=== PATIENT | female | born 1955 | race Caucasian/White ===

== ENCOUNTER 2019-07-19 00:25 | Emergency (ER) | payer MEDICARE, OTHER ==
[~2019-07-19] VITALS: Ht 162.6 cm; Wt 100.0 kg
[~2019-07-19 00:25] MED LIST: CETI-454 PO; GLIM4 PO; METF-446 PO; MULT-12 PO; NAPR375T6 PO; SIMV-261 PO
[2019-07-19] MEDS: DiphenhydrAMINE HCL 25 MG CAPSULE PO ONE (01:16)
[2019-07-19] MEDS: ACETAMINOPHEN 325 MG TABLET PO ONE (05:44)
[2019-07-19 13:01] VITALS: BP 145/82
== END 2019-07-19 13:03 | disposition home or self-care (01) ==
LOC: EMS 00:25
DX: T59.891A Toxic effect of other specified gases, fumes and vapors, accidental (unintentional), initial encounter (principal); E11.9 Type 2 diabetes mellitus without complications; E78.00 Pure hypercholesterolemia, unspecified; J45.909 Unspecified asthma, uncomplicated; Z91.010 Allergy to peanuts; Z79.899 Other long term (current) drug therapy; Y92.89 Other specified places as the place of occurrence of the external cause

== ENCOUNTER 2020-07-07 07:54 | Emergency (ER) | payer MEDICARE, OTHER ==
[~2020-07-07] VITALS: Ht 162.6 cm; Wt 95.5 kg
[2020-07-07 08:31] LABS: GLUCOSE,POINT OF CARE 365 MG/DL (70-110)
[2020-07-07 08:45] LABS: BASOPHILS % (AUTO) 0.7 % (0.0-2.0); EOSINOPHILS % (AUTO) 1.6 % (1.0-6.0); HEMATOCRIT 37.2 % (36-46); HEMOGLOBIN 12.3 g/dL (12.0-16.0); LYMPHOCYTES # (AUTO) 1.1 K/uL (1.0-4.8); LYMPHOCYTES % (AUTO) 22.4 % (22.0-44.0); MEAN CORPUSCULAR HEMOGLOBIN 29.3 pg (26.0-34.0); MEAN CORPUSCULAR HGB CONC 33.2 G/dL (31.0-37.0); MEAN CORPUSCULAR VOLUME 88 fL (80-100); MONOCYTES # (AUTO) 0.3 K/uL (0.1-1.0); MONOCYTES % (AUTO) 5.7 % (2.0-9.0); NEUTROPHILS # (AUTO) 3.4 K/uL (1.8-7.7); NEUTROPHILS % (AUTO) 69.6 % (40.0-70.0); PLATELET COUNT (AUTO) 217 K/uL (150-450); RED BLOOD CELL COUNT(AUTO) 4.21 MIL/uL (4.00-5.20); RED CELL DISTRIBUTION WIDTH 14.4 % (11.5-14.5)
[2020-07-07 08:57] LABS: ANION GAP 8 mmol/L (8-16); CALCIUM, TOTAL 9.2 mg/dL (8.8-10.5); CARBON DIOXIDE 31 mmol/L (22-29); CHLORIDE 101 mmol/L (98-107); CREATININE 0.79 mg/dL (0.60-1.30); GLOMERULAR FILTR. RATE CALC > 60 mL/min (>60); GLUCOSE,RANDOM 376 mg/dL (70-110); SODIUM SERUM 140 mmol/L (136-145); UREA NITROGEN, BLOOD 11 mg/dL (7-18)
[2020-07-07 08:59] LABS: COVID AG,FIA SOURCE NASAL SWAB
[2020-07-07 09:02] LABS: ALANINE AMINOTRANSFERASE 18 U/L (12-78); ALBUMIN 3.4 g/dL (3.4-5.0); ALKALINE PHOSPHATASE 87 U/L (46-116); ASPARTATE AMINOTRANSFERASE 9 U/L (15-37); BILIRUBIN,TOTAL 0.3 mg/dL (0.1-1.0); LIPASE 129 U/L (73-393); TOTAL PROTEIN, SERUM 7.6 g/dL (6.4-8.2)
[2020-07-07 09:03] LABS: PROTHROMBIN TIME 10.7 SEC (9.4-11.6)
[2020-07-07] MEDS ORDERED: SODIUM CHLORIDE 0.9% 500 ML IV ONE (09:15)
[2020-07-07] MEDS ORDERED: INSULIN REGULAR, HUMAN 100 UNITS/ML IVP ONE (09:15)
[2020-07-07 13:10] VITALS: BP 110/64
== END 2020-07-07 16:30 | disposition home or self-care (01) ==
LOC: EMS 08:00
DX: E11.65 Type 2 diabetes mellitus with hyperglycemia (principal); R10.84 Generalized abdominal pain; J45.909 Unspecified asthma, uncomplicated; E78.00 Pure hypercholesterolemia, unspecified; Z59.0 Homelessness; Z91.010 Allergy to peanuts; Z79.84 Long term (current) use of oral hypoglycemic drugs; Z20.822 Contact with and (suspected) exposure to COVID-19
CPT/HCPCS: 36415; 71045; 80053; 82962; 83690; 84484; 85025; 85610; 85730; 87426; 93005; 96374; 99285; G0480; J1815